=== PATIENT | female | born 1990 | race American Indian/Alaskan Native ===

== ENCOUNTER 2024-01-04 18:21 | Emergency (ER) | payer MEDICAID ==
[~2024-01-04] VITALS: Ht 160 cm; Wt 90.9 kg
[2024-01-04] MEDS ORDERED: BUPR1TAB32 SL (18:35)
[2024-01-04] MEDS ORDERED: HYDR50CA7 PO (18:35)
[2024-01-04] MEDS ORDERED: TRAZ-252 PO (18:35)
[2024-01-04] MEDS ORDERED: FLUO10CA24 PO (18:35)
[2024-01-04] MEDS ORDERED: GABA-1181 PO (18:35)
[2024-01-04] MEDS ORDERED: ARIP10TA38 PO (18:35)
[2024-01-04] MEDS ORDERED: BISA-184 PO (18:44)
[2024-01-04] MEDS ORDERED: BUPR8TAB4 SL ×2 (18:44)
[2024-01-04] MEDS ORDERED: TRAZ-257 PO (18:44)
[2024-01-04] MEDS ORDERED: ALBU18HF12 IH (18:44)
[2024-01-04 21:30] VITALS: BP 129/87; PULSE 89; RESP 18; TEMP 97.3
[2024-01-04] MEDS ORDERED: FLUT16SP NASAL (21:30)
[2024-01-04] MEDS ORDERED: AMOX250C4 PO (21:30)
== END 2024-01-04 22:04 | disposition home or self-care (01) ==
LOC: EMS 18:22
DX: H65.92 Unspecified nonsuppurative otitis media, left ear (principal); F41.9 Anxiety disorder, unspecified; F32.A Depression, unspecified; Z88.5 Allergy status to narcotic agent
CPT/HCPCS: 99283